=== PATIENT | male | born 1950 | race Caucasian/White ===

== ENCOUNTER → 2020-03-03 | Outpatient (CLI) | payer MEDICARE ==
[~2020-03-03] MED LIST: ALLO300T PO
[2020-03-03 11:26] LABS: ALBUMIN 3.2 g/dL (3.4-5.0); ANION GAP 4 mmol/L (5-15); CALCIUM 8.9 mg/dL (8.5-10.1); CHLORIDE 113 mmol/L (98-107)
[2020-03-03 11:30] LABS: ALANINE AMINOTRANSFERASE 28 U/L (12-78); ALKALINE PHOSPHATASE 181 U/L (45-117); BILIRUBIN,TOTAL 0.6 mg/dL (0.2-1.0); CREATININE 0.94 mg/dL (0.7-1.3)
== END | disposition home or self-care (01) ==
LOC: STAR 09:32
PROVIDERS: ATTEND Surgery
DX: Z01.812 Encounter for preprocedural laboratory examination (principal); Z20.828 Contact with and (suspected) exposure to other viral communicable diseases; I51.7 Cardiomegaly
CPT/HCPCS: 36415; 80053; 87635; 93005

== ENCOUNTER 2020-03-07 10:42 | Day surgery (SDC) | payer MEDICARE ==
[~2020-03-07] VITALS: Ht 185.4 cm; Wt 88.0 kg
[~2020-03-07 10:42] MED LIST changes: +BUPIVACAINE/PF 0.5% ONE; +EPINEPHRINE 1 MG/ML, 1ML ONE
[2020-03-07 10:49] VITALS: BP 133/76
[2020-03-07] MEDS ORDERED: FENTANYL PF 250 MCG/5ML ONE (10:49)
[2020-03-07] MEDS ORDERED: MIDAZOLAM 1 MG/ML, 2ML ONE (10:49)
[2020-03-07] MEDS ORDERED: LACTATED RINGERS 1,000 ML IV SCH (10:50)
[2020-03-07] MEDS ORDERED: CHLORHEXIDINE 15 ML UDC ONE (10:55)
[2020-03-07] MEDS ORDERED: PROPOFOL 50 ML ONE (10:58)
[2020-03-07] MEDS ORDERED: DEXAMETHASONE 4 MG/ML, 1ML ONE (10:58)
[2020-03-07] MEDS ORDERED: GLYCOPYRROLATE 0.2MG/1ML, 5ML ONE (10:58)
[2020-03-07] MEDS ORDERED: NEOSTIGMINE 1 MG/ML, 10ML ONE (10:58)
[2020-03-07] MEDS ORDERED: SUCCINYLCHOLINE 20 MG/ML, 10ML ONE (10:58)
[2020-03-07] MEDS ORDERED: PROPOFOL 10 MG/ML, 20ML ONE (10:58)
[2020-03-07] MEDS ORDERED: ONDANSETRON 2MG/ML, 2ML ONE (10:58)
[2020-03-07] MEDS ORDERED: CEFAZOLIN 1,000 MG ONE (10:58)
[2020-03-07] MEDS ORDERED: CHLORHEXIDINE 15 ML UDC MM ONE (11:00)
[2020-03-07] MEDS ORDERED: HYDROmorphone 1 MG/ML, 1ML INJ IVPush PRN (12:30)
[2020-03-07] MEDS ORDERED: METHOCARBAMOL 1,000 MG in DEXTROSE 5% 100 ML IV PRN (12:30)
[2020-03-07] MEDS ORDERED: PROMETHAZINE 25 MG/ML, 1ML IVPush PRN (12:30)
[2020-03-07] MEDS ORDERED: OXYcodone 5 MG/5 ML ORAL.SOL UDC PO PRN (12:30)
[2020-03-07] MEDS ORDERED: PROMETHAZINE 25 MG SUPP PR PRN (12:30)
[2020-03-07] MEDS ORDERED: FENTANYL PF 100 MCG/2ML IV PRN (12:30)
[2020-03-07] MEDS ORDERED: ACETAMINOPHEN 325 MG TABLET PO PRN (12:30)
[2020-03-07] MEDS ORDERED: ONDANSETRON 2MG/ML, 2ML IVPush PRN (12:30)
[2020-03-07] MEDS ORDERED: ROCURONIUM 10MG/ML,5ML ONE (15:45)
[2020-03-07] MEDS ORDERED: SUGAMMADEX 200 MG/2 ML IVPush ONE (15:45)
== END 2020-03-07 14:45 | disposition home or self-care (01) ==
LOC: OUT 10:42
PROVIDERS: ATTEND Surgery
DX: C80.0 Disseminated malignant neoplasm, unspecified (principal); C49.A9 Gastrointestinal stromal tumor of other sites; M10.9 Gout, unspecified; F17.210 Nicotine dependence, cigarettes, uncomplicated; Z91.040 Latex allergy status; Z98.890 Other specified postprocedural states; Z90.49 Acquired absence of other specified parts of digestive tract; Z79.899 Other long term (current) drug therapy; Z83.3 Family history of diabetes mellitus; Z82.49 Family history of ischemic heart disease and other diseases of the circulatory system
CPT/HCPCS: 49321; 88305; 88313; 88331; 88341; 88342; C1729; J0171; J0330; J0690; J1100; J2405; J2704; J2710; J3010; J7120; J2250

== ENCOUNTER → 2020-03-10 | Outpatient (CLI) | payer MEDICARE ==
[~2020-03-10] MED LIST changes: -BUPIVACAINE/PF 0.5% ONE; -EPINEPHRINE 1 MG/ML, 1ML ONE
== END | disposition home or self-care (01) ==
LOC: RAD 16:49
PROVIDERS: ATTEND Surgery
DX: R19.03 Right lower quadrant abdominal swelling, mass and lump (principal); C80.0 Disseminated malignant neoplasm, unspecified
CPT/HCPCS: 76700